=== PATIENT | male | born 1970 | race Caucasian/White ===

== ENCOUNTER 2017-10-30 06:40 | Emergency (ER) | payer OTHER ==
[~2017-10-30] VITALS: Ht 185.4 cm; Wt 182.8 kg
[2017-10-30 07:29] LABS: HEMATOCRIT 40.6 % (38.0-50.0); MCH 26.9 PG (29.0-34.0); MCV 81.4 FL (86-99); MEAN PLAT.VOLUME 9.8 uM^3 (9.0-12.4); PLATELET COUNT 238 K/uL (156-360); RBC DIS.WIDTH-CV 14.8 % (11.8-14.6); RBC DIS.WIDTH-SD 43.8 % (39-53); RED BLOOD COUNT 4.99 M/uL (4.00-5.50); WHITE BLOOD COUNT 8.7 K/uL (4.1-10.2)
[2017-10-30 07:49] LABS: CHLORIDE 104 mEq/L (99-109); POTASSIUM 3.8 mEq/L (3.7-5.4); SODIUM 137 mEq/L (136-147)
[2017-10-30 08:29] LABS: D-DIMER ELISA < 150.00 ng/mLDDU (<230)
[2017-10-30 08:42] LABS: TROP-I INTERPRETATION NEGATIVE; TROPONIN-I < 0.01 ng/mL (0.0-0.30)
[2017-10-30 08:44] LABS: GLUCOSE 121 mg/dL (70-99)
[2017-10-30 08:45] LABS: ANION GAP 10 MEQ/L (2-14)
[2017-10-30 08:48] LABS: GFR ESTIMATE (CALCULATED) > 59 mL/min/ (58.99-99999)
[2017-10-30 08:49] LABS: UREA NITROGEN (BUN) 12 mg/dL (9-23)
[2017-10-30] MEDS ORDERED: PREDNISONE20 MG PO ×2 (12:32→12:35)
[2017-10-30] MEDS ORDERED: ZITHROMAX Z-PA250 MG PO (12:32)
[2017-10-30 12:45] VITALS: BP 155/96
[2017-10-30] MEDS ORDERED: TYLENOL WITH C1 EACH PO (14:26)
[2017-10-31] MEDS ORDERED: PRINIVIL10 MG PO (10:48)
== END 2017-10-30 14:30 | disposition home or self-care (01) ==
LOC: EME 06:40
PROVIDERS: Emergency Medicine
DX: J40 Bronchitis, not specified as acute or chronic (principal); M79.604 Pain in right leg; M79.605 Pain in left leg; M25.762 Osteophyte, left knee; M25.462 Effusion, left knee; R60.0 Localized edema; M19.90 Unspecified osteoarthritis, unspecified site; R53.1 Weakness; E66.9 Obesity, unspecified; Z68.43 Body mass index [BMI] 50.0-59.9, adult; I10 Essential (primary) hypertension; Z91.14 Patient's other noncompliance with medication regimen; Z59.0 Homelessness
CPT/HCPCS: 71020; 73564; 80048; 83880; 84484; 85027; 85379; 93005; 93970; 99281; 99284

== ENCOUNTER 2017-10-31 06:59 | Emergency (ER) | payer OTHER ==
[~2017-10-31] VITALS: Ht 185.4 cm; Wt 179.8 kg
[~2017-10-31 06:59] MED LIST: PREDNISONE20 MG PO; TYLENOL WITH C1 EACH PO; ZITHROMAX Z-PA250 MG PO
[2017-10-31 07:50] LABS: MCH 26.9 PG (29.0-34.0); MCV 81.6 FL (86-99); MEAN PLAT.VOLUME 9.7 uM^3 (9.0-12.4); PLATELET COUNT 198 K/uL (156-360); RBC DIS.WIDTH-CV 14.8 % (11.8-14.6); RBC DIS.WIDTH-SD 44.2 % (39-53); WHITE BLOOD COUNT 6.2 K/uL (4.1-10.2)
[2017-10-31 07:59] LABS: CHLORIDE 102 mEq/L (99-109); POTASSIUM 4.1 mEq/L (3.7-5.4); SODIUM 137 mEq/L (136-147)
[2017-10-31 08:00] LABS: GLUCOSE 122 mg/dL (70-99)
[2017-10-31 08:02] LABS: ANION GAP 10 MEQ/L (2-14)
[2017-10-31 08:04] LABS: GFR ESTIMATE (CALCULATED) > 59 mL/min/ (58.99-99999)
[2017-10-31 08:05] LABS: UREA NITROGEN (BUN) 10 mg/dL (9-23)
[2017-10-31] MEDS ORDERED: PRINIVIL10 MG PO (10:48)
[2017-10-31 12:50] VITALS: BP 134/81
== END 2017-10-31 12:51 | disposition home or self-care (01) ==
LOC: EME → EDBD 06:59 → EME 12:51
PROVIDERS: Nurse Practitioner Family
DX: R51 Headache (principal); M25.462 Effusion, left knee; Z91.14 Patient's other noncompliance with medication regimen; I10 Essential (primary) hypertension; Z59.0 Homelessness; F32.9 Major depressive disorder, single episode, unspecified; Z76.5 Malingerer [conscious simulation]; E78.5 Hyperlipidemia, unspecified
CPT/HCPCS: 80048; 85027; 90839; 93005; 99281; 99284; J1885